=== PATIENT | female | born 1980 | race Caucasian/White ===

== ENCOUNTER 2020-08-26 14:29 | Observation (INO) ==
[2020-08-26 15:36] LABS: Bacteria,Urine Few per hpf (None-Few); Bilirubin,Urine Negative (Negative); Blood,Urine Trace (Negative); Clarity,Urine Clear (Clear); Color,Urine Colorless (Yellow); Glucose,Urine (UA) Normal (Normal); Ketones,Urine Negative (Negative); Leukocyte Esterase,Urine Negative (Negative); Mucus,Urine Few per lpf (None-Few); Nitrite,Urine Negative (Negative); PH,Urine 6.5 pH Units (5.0-8.0); Protein,Urine Negative (Neg-Trace); RBC,Urine 0-3 per hpf (0-3); Specific Gravity,Urine 1.012 (1.010-1.025); Squamous Epithelial Cell,Urine Few per hpf (None-Few); Urobilinogen,Urine Normal (Normal); WBC,Urine 0-3 per hpf (0-3)
[2020-08-26 15:41] LABS: Basophils # 0.1 K/mcL (0.0-0.2); Basophils % 0.9 %; Eosinophils % 0.6 %; Hematocrit 39.8 % (35.3-44.9); Immature Granulocytes % 0.1 % (0-4); Lymphocytes # 1.8 K/mcL (0.6-4.6); Lymphocytes % 27.1 %; Mean Corpuscular HGB Conc 32.7 g/dL (31.6-35.5); Mean Corpuscular Hemoglobin 31.9 pg (28.0-33.3); Mean Corpuscular Volume 97.5 fL (83.0-100.0); Mean Platelet Volume 10.7 fL (9.4-12.4); Monocytes # 0.4 K/mcL (0.0-1.3); Monocytes % 6.1 %; Neutrophils # 4.4 K/mcL (1.6-8.9); Platelet Count 224 K/mcL (140-400); Red Blood Count 4.08 M/mcL (3.82-4.97); Red Cell Distribution Width 13.7 % (11.5-14.5); Segmented Neutrophils % 65.2 %; White Blood Count 6.7 K/mcL (4.3-11.1)
[2020-08-26 15:57] LABS: Acetaminophen < 10 mcg/mL (10-20); BUN/Creatinine Ratio 13 (6-26); Blood Urea Nitrogen 10 mg/dL (6-20); Calcium 9.2 mg/dL (8.6-10.3); Carbon Dioxide 27 mEq/L (23-29); Chloride 106 mEq/L (98-107); Chol/HDL Ratio 2.8 (0-4.9); Cholesterol 177 mg/dL (< 200); Ethanol < 10 mg/dL (Less than 10); Glucose 104 mg/dL (70-105); HDL Cholesterol 64 mg/dL (40-59); LDL Cholesterol,Calculated 105 mg/dL (< 100); Osmolality,Calculated 291 (280-300); Potassium 3.3 mEq/L (3.5-5.1); Salicylate < 2.5 mg/dL (15.0-30.0); Sodium 141 mEq/L (136-145); Triglycerides 42 mg/dL (< 150); eGFR For African Americans > 60 (> 60); eGFR For Non-African Americans > 60 (> 60)
[2020-08-26 16:07] LABS: Amphetamine Screen,Urine Negative ng/mL (Cutoff=1000); Barbiturate Screen,Urine Negative ng/mL (Cutoff=200); Benzodiazepines Screen,Urine Positive ng/mL (Cutoff=200); Cannabinoid Screen,Urine Negative ng/mL (Cutoff = 50); Cocaine Screen,Urine Negative ng/mL (Cutoff= 300); Opiate Screen,Urine Negative ng/mL (Cutoff=300); Phencyclidine Screen,Urine Negative ng/mL (Cutoff=25)
[2020-08-26] MEDS ORDERED: MOM Conc 10 ML UD.LIQ PO PRN (17:54)
[2020-08-26] MEDS ORDERED: hydrOXYzine pamoate 25 MG CAPSULE PO PRN (17:54)
[2020-08-26] MEDS ORDERED: haloperidoL 5 MG TABLET PO PRN (17:54)
[2020-08-26] MEDS ORDERED: Haloperidol Lactate 5 MG/ML VIAL IM PRN (17:54)
[2020-08-26] MEDS ORDERED: Acetaminophen 325 MG TABLET PO PRN (17:54)
[2020-08-26] MEDS ORDERED: traZODone 50 MG TABLET PO PRN (17:54)
[2020-08-26] MEDS ORDERED: *HR* LORazepam 2 MG/ML VIAL IM PRN (17:54)
[2020-08-26] MEDS ORDERED: *HR* LORazepam 1 MG TABLET PO PRN (17:54)
[2020-08-26] MEDS ORDERED: Mag Hydrox/Al Hydrox/Simeth 30 ML UDC PO PRN (17:54)
[2020-08-26] MEDS ORDERED: Nicotine 2 MG GUM BC PRN (20:01)
[2020-08-26] MEDS: diazePAM 5 MG TABLET PO PRN (20:30)
[2020-08-26] MEDS: Nicotine 21 MG PATCH.TD24 TD SCH (20:35)
[2020-08-27] MEDS ORDERED: Loratadine 10 MG TABLET PO SCH (09:00)
[2020-08-27] MEDS: Nicotine 21 MG PATCH.TD24 TD SCH (09:02)
[2020-08-27] MEDS: Loratadine 10 MG TABLET PO SCH (09:02)
[2020-08-27] MEDS: Azithromycin 250 MG TABLET PO SCH (09:02)
[2020-08-27] MEDS: Fluticasone Propionate Nasal 50 MCG/SPRAY BOTTLE NS SCH (09:04)
[2020-08-27] MEDS: diazePAM 5 MG TABLET PO PRN (09:05)
[2020-08-27] MEDS: clonazePAM 1 MG TABLET PO SCH ×2 (14:53→21:28)
[2020-08-27 15:40] LABS: Estimated Average Glucose 111 mg/dl
[2020-08-27] MEDS ORDERED: ARNUITY AER SCH (21:00)
[2020-08-28 08:29] VITALS: BP 104/62
[2020-08-28] MEDS: clonazePAM 1 MG TABLET PO SCH (08:46)
[2020-08-28] MEDS: Loratadine 10 MG TABLET PO SCH (08:46)
[2020-08-28] MEDS: Azithromycin 250 MG TABLET PO SCH (08:47)
[2020-08-28] MEDS: Nicotine 21 MG PATCH.TD24 TD SCH (08:47)
[2020-08-28] MEDS: Fluticasone Propionate Nasal 50 MCG/SPRAY BOTTLE NS SCH (08:49)
== END 2020-08-28 13:40 | disposition home or self-care (01) ==
LOC: EMEROOARM 14:29 → 1ANU 14:29
PROVIDERS: ADMIT Psychiatry & Neurology Psychiatry; ATTEND Psychiatry & Neurology Psychiatry